=== PATIENT | male | born 1980 | race Caucasian/White ===

== ENCOUNTER 2021-05-26 13:40 | Emergency (ER) | payer OTHER ==
[2021-05-26 15:04] LABS: BASOPHIL 0.5 % (0-2); EOSINOPHIL 2.2 & (0-5); HCT 45.5 % (42.0-52.0); HGB 15.8 g/dl (13.2-18.0); LYMPHOCYTE 35.2 % (15-48); MCH 31.2 pg (25.0-31.0); MCHC 34.7 g/dL (32.0-36.0); MCV 89.7 fL (78.0-100.0); MONOCYTE 8.2 % (0-12); MPV 9.8 fL (6.0-9.5); NEUTROPHIL 53.4 % (41-80); PLT 250 K/uL (150-400); RBC 5.07 M/uL (4.70-6.00); RDW 11.7 % (11.5-14.0); WBC 5.96 K/uL (4.0-10.5)
[2021-05-26 15:22] LABS: ACETAMINOPHEN (TYLENOL) < 2.0 ug/mL (10.0-30.0); ALKALINE PHOSHATASE 108 U/L (46-116); ALT 23 U/L (16-63); AST 16 U/L (15-37); BILIRUBIN - TOTAL 0.4 mg/dL (0.2-1.0); BUN 11 mg/dL (7-18); BUN/CREAT RATIO (CALC) 9.6 RATIO; CHLORIDE 106 mmol/L (98-107); CO2 (BICARBONATE) 29 mmol/L (21-32); CREATININE 1.14 mg/dL (0.67-1.17); GLOBULIN (CALCULATION) 3.3 g/dL; GLUCOSE 102 mg/dL (74-106); POTASSIUM 4.7 mmol/L (3.5-5.1); TOTAL PROTEIN 7.3 g/dL (6.4-8.2)
[2021-05-26 18:15] LABS: AMPHETAMINES NEGATIVE (NEGATIVE); BARBITURATES NEGATIVE (NEGATIVE); ECSTASY (MDMA) NEGATIVE (NEGATIVE); MARIJUANA (THC) NEGATIVE (NEGATIVE); METHADONE NEGATIVE (NEGATIVE); OPIATES NEGATIVE (NEGATIVE); OXYCODONE NEGATIVE (NEGATIVE)
== END 2021-05-27 00:27 | disposition other institution (70) ==
LOC: FER 13:40
PROVIDERS: Internal Medicine
DX: R45.851 Suicidal ideations (principal); F17.200 Nicotine dependence, unspecified, uncomplicated; Z20.822 Contact with and (suspected) exposure to COVID-19
CPT/HCPCS: 36415; 80053; 80305; 85025; 99285; G0480; U0002

== ENCOUNTER 2021-07-17 18:48 | Emergency (ER) | payer OTHER ==
[2021-07-17 22:44] LABS: BASOPHIL 0.7 % (0-2); EOSINOPHIL 3.2 % (0-5); HGB 15.2 g/dl (13.2-18.0); LYMPHOCYTE 37.7 % (15-48); MCHC 33.8 g/dL (32.0-36.0); MCV 91.8 fL (78.0-100.0); MONOCYTE 7.7 % (0-12); MPV 10.4 fL (6.0-9.5); NEUTROPHIL 50.3 % (41-80); NRBC 0; PLT 201 K/uL (150-400); RDW 12.3 % (11.5-14.0)
[2021-07-17 23:11] LABS: ALBUMIN 3.9 g/dL (3.4-5.0); BILIRUBIN - TOTAL 0.3 mg/dL (0.2-1.0); BUN/CREAT RATIO (CALC) 11.6 RATIO; CREATININE 1.12 mg/dL (0.67-1.17); GLOBULIN (CALCULATION) 3.4 g/dL; POTASSIUM 4.2 mmol/L (3.5-5.1); TOTAL PROTEIN 7.3 g/dL (6.4-8.2)
== END 2021-07-18 00:18 | disposition home or self-care (01) ==
LOC: FER 18:48
PROVIDERS: Emergency Medicine
DX: G40.909 Epilepsy, unspecified, not intractable, without status epilepticus (principal)
CPT/HCPCS: 36415; 80053; 85025; J1953

== ENCOUNTER 2021-07-19 09:12 | Emergency (ER) | payer OTHER ==
[2021-07-19 09:58] LABS: BASOPHIL 0.3 % (0-2); EOSINOPHIL 1.3 % (0-5); HCT 45.4 % (42.0-52.0); HGB 15.4 g/dl (13.2-18.0); LYMPHOCYTE 20.4 % (15-48); MCH 31.2 pg (25.0-31.0); MCHC 33.9 g/dL (32.0-36.0); MCV 92.1 fL (78.0-100.0); MONOCYTE 6.6 % (0-12); MPV 10.3 fL (6.0-9.5); NEUTROPHIL 70.7 % (41-80); NRBC 0; PLT 195 K/uL (150-400); RBC 4.93 M/uL (4.70-6.00); RDW 12.3 % (11.5-14.0); WBC 10.4 K/uL (4.0-10.5)
[2021-07-19 10:34] LABS: ALBUMIN 3.7 g/dL (3.4-5.0); BILIRUBIN - TOTAL 0.4 mg/dL (0.2-1.0); BUN/CREAT RATIO (CALC) 8.5 RATIO; CREATININE 1.17 mg/dL (0.67-1.17); GLOBULIN (CALCULATION) 2.8 g/dL; POTASSIUM 3.9 mmol/L (3.5-5.1); TOTAL PROTEIN 6.5 g/dL (6.4-8.2)
[2021-07-19 11:01] LABS: CORONAVIRUS 2019 SARS-COV-2 NEGATIVE (NEGATIVE); INFLUENZA A NAA NEGATIVE (NEGATIVE)
[2021-07-19 11:18] LABS: BILIRUBIN NEGATIVE (NEGATIVE); BLOOD NEGATIVE Ery/uL (NEGATIVE); CLARITY CLEAR (CLEAR); COLOR YELLOW (YELLOW); GLUCOSE (U) NORMAL (NORMAL); LEUKOCYTES NEGATIVE Leu/uL (NEGATIVE); NITRITE NEGATIVE (NEGATIVE); PROTEIN NEGATIVE (NEGATIVE); UROBILINOGEN 0.2 mg/dL (0.2-1.0)
[2021-07-19 11:20] LABS: AMPHETAMINES NEGATIVE (NEGATIVE); BARBITURATES NEGATIVE (NEGATIVE); ECSTASY (MDMA) NEGATIVE (NEGATIVE); MARIJUANA (THC) NEGATIVE (NEGATIVE); METHADONE NEGATIVE (NEGATIVE); OPIATES NEGATIVE (NEGATIVE); OXYCODONE NEGATIVE (NEGATIVE)
[2021-07-19 12:08] LABS: CHOLESTEROL 170 mg/dL (<200); HDL 33 mg/dL (40-60); LDL - DIRECT 101 mg/dL (<100); TRIGLYCERIDES 144 mg/dL (<150)
== END 2021-07-19 15:15 | disposition home or self-care (01) ==
LOC: FER 09:12
PROVIDERS: Internal Medicine
DX: H53.8 Other visual disturbances (principal); R51.9 Headache, unspecified; F17.210 Nicotine dependence, cigarettes, uncomplicated; Z20.822 Contact with and (suspected) exposure to COVID-19
CPT/HCPCS: 36415; 70450; 71045; 80053; 80061; 80305; 81003; 83690; 84145; 84443; 84484; 85025; 93005; 96372; J1100; J3030; J7030; U0002